=== PATIENT | male | born 1995 | race Caucasian/White ===

== ENCOUNTER → 2020-10-03 | Outpatient (CLI) | payer SELFPAY ==
[~2020-10-03] MED LIST: HYDR-1231 PO
--- NOTE | 2020-10-03 17:49 | Diagnostic Imaging Report ---
PROCEDURE: CT head and CT cervical spine without contrast. TECHNIQUE: Multiple contiguous axial images were obtained through the brain and cervical spine without the use of intravenous contrast. Sagittal and coronal reformations through the cervical spine were then performed. Auto Exposure Controls were utilized during the CT exam to meet ALARA standards for radiation dose reduction. DATE: October 03, 2020. COMPARISON: None. INDICATION: 25-year-old male, head and neck trauma. FINDINGS: There are skin henny along the high right posterior scalp. There is no identified skull fracture. There is opacification in the bilateral ethmoidal air cells and right maxillary sinus. There is mucosal thickening involving both maxillary sinuses as well as both sphenoid sinuses. The frontal sinuses are well aerated. The mastoid air cells and middle ears are well-aerated bilaterally. The ventricles and cerebral spinal fluid spaces are of normal size and configuration for the patient's age. There is no mass effect or midline shift. There is no acute intracranial hemorrhage. There is no abnormal extra-axial fluid collection. There is straightening of the normal cervical lordosis. There is no identified facet joint subluxation or dislocation. There is no asymmetric widening of the cervical disc spaces. There is no identified acute fracture of the cervical spine. CT is limited for assessment of disc pathology in addition to nonbony causes of pathology in the spinal canal. There is no pronounced disc height loss at the cervical spine levels. The facet articulations are unremarkable. The visualized portions of the lung bases are grossly clear. IMPRESSION: 1. Skin henny along the high right posterior scalp. 2. No acute intracranial abnormality. 3. No identified acute abnormality of the cervical spine. Dictated by: Dictated on workstation # [id number]
== END ==
LOC: RAD 17:08
PROVIDERS: ATTEND Family Medicine
DX: S00.93XA Contusion of unspecified part of head, initial encounter (principal); S10.93XA Contusion of unspecified part of neck, initial encounter; X58.XXXA Exposure to other specified factors, initial encounter
CPT/HCPCS: 70450; 72125

== ENCOUNTER → 2021-04-17 | Outpatient (CLI) | payer SELFPAY ==
[~2021-04-17] MED LIST changes: +GADOBUTROL 10 MMOL/10 ML (GADAVIST) VIAL IV ONE
--- NOTE | 2021-04-17 12:08 | Diagnostic Imaging Report ---
PROCEDURE: MR imaging of the brain with and without contrast. TECHNIQUE: Multiplanar, multisequence MR imaging of the brain was performed with and without contrast. INDICATION: Left facial numbness symptoms of 3 weeks' duration. No relevant comparison FINDINGS: There is an abnormal elevated T2 signal intensity most conspicuous on the FLAIR weighted pulse sequences in the left middle cerebellar peduncle, somewhat linearly configured, seen best on FLAIR weighted image 8 series 5 as well as axial T2 image 8 series 4. This is associated with some mild enhancement, somewhat linear in its orientation seen best on postcontrast enhanced T1 sagittal images 11 and 12 as well as vaguely seen on axial postcontrast enhanced T1 imaging #8 series 8 and postcontrast enhanced T1 coronal image 15 series 9. While there is some elevated signal on the diffusion-weighted imaging this has corresponding bright signal on the ADC maps and is believed to be T2 shine through and does not demonstrate true pathological diffusion restriction. Equivocal and much less conspicuous findings in the contralateral right middle cerebellar peduncle on the axial and the axial FLAIR and T2-weighted imaging is noted as well this without enhancement. A solitary left frontal lobe deep white matter lesion of about 3 mm is seen on the FLAIR weighted imaging image 17 series 5. That focus in isolation would typically be ignored, however in a patient of this age with new onset 3 weeks history of facial numbness and the findings in the middle cerebellar peduncle very subtle early changes of a demyelinating process including etiology such as multiple sclerosis should be considered. No other potential white matter lesions are found. The cerebral cortical volume normal. After contrast was administered there were no other areas of abnormal or suspicious parenchymal or meningeal enhancement. There is a small amount of fluid along the left greater than right anterior optic nerve sheaths. The orbits appeared otherwise normal. The optic nerves themselves did not appear thickened nor abnormally enhancing. Sella and suprasellar cisterns the chiasm and pituitary infundibulum normal. There was no evidence for mass or mass effect. There is normal enhancement of the major dural venous sinuses, cerebellopontine angles and the mastoids appeared normal. There is mild lobular membrane thickening in the maxillary sinuses with the left maxillary sinus mucus retention cyst and mild membrane thickening in a few ethmoid air cells. There are no paranasal sinus air-fluid level. IMPRESSION: 1. Focal area of abnormal signal intensity involving the left middle cerebellar peduncle associated with vague linear enhancement but no pathological diffusion restriction and no volume loss or mass effect. While this nonspecific finding can be seen in multiple etiologies given the history and age early changes of multiple sclerosis should be considered. We note a solitary left frontal lobe deep white matter lesion which itself is nonspecific without enhancement, mass effect or acute features. 2. Small amounts of fluid in the bilateral optic nerve sheaths without optic nerve swelling or abnormal enhancement, orbits and optic pathways otherwise normal. Equivocal altered signal in the contralateral right middle cerebellar peduncle is barely perceptible and of uncertain significance. 3. Some chronic appearing paranasal sinus membrane disease, the brain MRI with and without contrast was otherwise unremarkable. Dictated by: Dictated on workstation # [id number]
== END ==
LOC: RAD 11:00
PROVIDERS: ATTEND Nurse Practitioner Family
DX: G35 Multiple sclerosis (principal); G93.89 Other specified disorders of brain; G50.0 Trigeminal neuralgia; R20.2 Paresthesia of skin
CPT/HCPCS: 70553